=== PATIENT | male | born 1940 | race Caucasian/White ===

== ENCOUNTER 2017-09-27 09:48 | Inpatient (IN) | payer MEDICARE, BC ==
[~2017-09-27] VITALS: Ht 172.7 cm; Wt 72.6 kg
[2017-09-27] MEDS ORDERED: SERT50TA PO (10:09)
[2017-09-27] MEDS ORDERED: SIMV20TA6 PO (10:09)
[2017-09-27] MEDS ORDERED: DIVA-78 PO (10:09)
[2017-09-27] MEDS ORDERED: CYAN10009 PO (10:09)
[2017-09-27] MEDS ORDERED: CHOL100045 PO (10:09)
[2017-09-27] MEDS ORDERED: VALS1TAB4 PO (10:09)
[2017-09-27] MEDS ORDERED: MEMA10TA PO (10:09)
[2017-09-27] MEDS ORDERED: ALLO100T PO (10:09)
[2017-09-27] MEDS ORDERED: RISP0.5T20 PO (10:09)
[2017-09-27] MEDS ORDERED: PROM6.256 PO (10:09)
[2017-09-27] MEDS ORDERED: CALC500T51 PO (10:09)
[2017-09-27] MEDS ORDERED: AZIT250T PO (10:09)
[2017-09-27] MEDS ORDERED: DONE10TA44 PO (10:09)
[2017-09-27] MEDS ORDERED: OLANZAPINE 5 MG TABLET PO ONE (10:45)
--- NOTE | 2017-09-27 10:46 | NUR ---
LABS DRAWN SENT EARLIER, EKG DONE, MEDS ADMIN. PT TO CT SCAN .
[2017-09-27] MEDS ORDERED: OLANZAPINE 5 MG TABLET ONE (10:48)
[2017-09-27 10:50] LABS: BASOPHILS % (AUTO) 0.5 % (0.0-2.0); EOSINOPHILS % (AUTO) 0.6 % (0.0-7.0); HEMATOCRIT 34.9 % (36.7-47.1); HEMOGLOBIN 11.8 g/dL (12.5-16.3); LYMPHOCYTES # (AUTO) 0.6 K/uL (20.0-40.0); LYMPHOCYTES % (AUTO) 13.4 % (20.5-51.5); MEAN CORPUSCULAR HEMOGLOBIN 33.1 uug (23.8-33.4); MEAN CORPUSCULAR HGB CONC 34 g/dL (32.5-36.3); MEAN CORPUSCULAR VOLUME 97.6 fL (73.0-96.2); MONOCYTES # (AUTO) 0.3 K/uL (2.0-10.0); MONOCYTES % (AUTO) 5.5 % (0.0-11.0); NEUTROPHILS # (AUTO) 3.7 K/uL (1.8-8.9); PLATELET COUNT (AUTO) 186 K/uL (152-348); RED BLOOD CELL COUNT(AUTO) 3.57 MIL/uL (4.06-5.63); WHITE BLOOD COUNT (AUTO) 4.6 K/uL (3.6-10.2)
[2017-09-27 11:03] LABS: CARBON DIOXIDE 27 mmol/L (21-32); CHLORIDE 101 mmol/L (98-107); GLUCOSE 114 mg/dL (74-106); POTASSIUM 3.3 mmol/L (3.5-5.1); UREA NITROGEN, BLOOD 43 mg/dL (7-18)
[2017-09-27 11:09] LABS: ALANINE AMINOTRANSFERASE 24 U/L (16-63); ALKALINE PHOSPHATASE 99 U/L (50-136); ASPARTATE AMINOTRANSFERASE 17 U/L (15-37); BILIRUBIN,DIRECT 0.1 mg/dL (0.0-0.2); BILIRUBIN,TOTAL 0.4 mg/dL (0.2-1.0); TOTAL PROTEIN, SERUM 7.7 g/dL (6.4-8.2)
[2017-09-27 11:10] LABS: ACETAMINOPHEN < 2.0 ug/mL (10-30)
[2017-09-27 13:32] LABS: *BILIRUBIN,URIN NEGATIVE (NEGATIVE); *BLOOD, URINE NEGATIVE (NEGATIVE); *CLARITY,URINE CLEAR (CLEAR); *COLOR,URINE YELLOW (YELLOW); *KETONES,URINE NEGATIVE (NEGATIVE); *PROTEIN,URINE NEGATIVE (NEGATIVE); *UROBILINOGEN,URINE 0.2 E.U./dl (NORMAL); LEUKOCYTE ESTERASE ,URINE NEGATIVE (NEGATIVE); NITRITE, URINE NEGATIVE (NEGATIVE); UGLUCOSE NEGATIVE (NEGATIVE)
[2017-09-27 13:50] LABS: BACTERIA,URINE NONE SEEN /HPF (NONE SEEN); RBC,URINE 0-3 /HPF (0-3); SQUAMOUS EPITHELIAL CELL,UR FEW /HPF (NONE SEEN); WBC,URINE 0-3 /HPF (0-3)
[2017-09-27] MEDS ORDERED: IV NORMAL SALINE 250 ML BAG IV ONE (14:45)
[2017-09-27] MEDS ORDERED: OLANZAPINE 5 MG TABLET PO PRN (15:00)
[2017-09-27] MEDS ORDERED: LORAZEPAM 0.5 MG TABLET PO PRN (15:00)
[2017-09-27] MEDS ORDERED: PROMETHAZINE HCL PO SCH (15:00)
[2017-09-27] MEDS ORDERED: ONDANSETRON 4 MG/2 ML VIAL IV PRN (15:00)
[2017-09-27] MEDS ORDERED: ACETAMINOPHEN 325 MG TABLET PO PRN (15:00)
[2017-09-27] MEDS ORDERED: HYDROCODONE/APAP 5-325MG TABLET PO PRN (15:00)
[2017-09-27] MEDS ORDERED: Z GUARD REMEDY PASTE 57 GM TUBE TOP PRN (15:00)
[2017-09-27] MEDS ORDERED: MAGNESIUM HYDROXIDE 30 ML LIQUID UDC PO PRN (15:00)
--- NOTE | 2017-09-27 15:16 | NUR ---
mse completed, belongingds list done, awairting for yaneth rn 2nd floor to call back for report.
--- NOTE | 2017-09-27 15:55 | NUR ---
patient transferred onto medical-surgical floor at this time in stable condition, vital signs stable. no s/s of distress. patient appears to be confused, restless, hallucinating. appears to be reaching for something with eyes closed. belongings checklist completed, vital signs taken, changed, situated comfortably in bed. wrapped IV-access for safety. daughter at bedside to provide information about patient. MD orders placed, will follow. reorientation will be provided. will continue to monitor. fall precaution. pt eval initiated.
[2017-09-27 16:27] VITALS: BP 122/56
[2017-09-27] MEDS ORDERED: risperiDONE 0.5 MG TABLET PO SCH (17:00)
[2017-09-27] MEDS ORDERED: ACET-73 PO (17:21)
[2017-09-27] MEDS ORDERED: ACETAMINOPHEN ES 500 MG TABLET PO SCH (17:30)
[2017-09-27] MEDS: MEMANTINE HCL 10 MG TABLET PO SCH (17:38)
[2017-09-27] MEDS: DONEPEZIL 10 MG TABLET PO SCH ×2 (17:38→20:15)
[2017-09-27] MEDS ORDERED: GUAIFENESIN/DEXTROMETHORPHAN 5 ML UDC PO PRN (18:30)
[2017-09-27 20:00] VITALS: BP 119/95
[2017-09-27] MEDS: ACETAMINOPHEN ES 500 MG TABLET PO SCH (20:15)
[2017-09-27] MEDS: DIVALPROEX 250 MG TABLET.DR PO SCH (20:15)
[2017-09-27] MEDS ORDERED: DIVALPROEX 500 MG TABLET.DR PO SCH (21:00)
--- NOTE | 2017-09-27 21:21 | NUR ---
Patient appears to be resting in bed eyes closed. Respirations even and unlabored on room air. No complaints of pain at this time. Medications administered. Will monitor for adverse reactions. No s/s of aspiration noted. Will continues to monitor.
--- NOTE | 2017-09-28 01:48 | NUR ---
Pt appears to be sleeping. Fall precautions observed at all times. Frequent visual checks. Bed alarms engaged. Will continue to monitor.
[2017-09-28 04:31] VITALS: BP 111/77
[2017-09-28] MEDS: PANTOPRAZOLE SODIUM 40 MG TABLET.DR PO SCH (06:16)
[2017-09-28 07:17] LABS: EOSINOPHILS # (AUTO) 0.2 K/uL (0.0-0.7); EOSINOPHILS % (AUTO) 4.5 % (0.0-7.0); HEMATOCRIT 33.1 % (36.7-47.1); HEMOGLOBIN 11.4 g/dL (12.5-16.3); LYMPHOCYTES # (AUTO) 0.8 K/uL (20.0-40.0); MEAN CORPUSCULAR HEMOGLOBIN 33.7 uug (23.8-33.4); MEAN CORPUSCULAR HGB CONC 35 g/dL (32.5-36.3); MEAN CORPUSCULAR VOLUME 97.4 fL (73.0-96.2); MONOCYTES # (AUTO) 0.3 K/uL (2.0-10.0); MONOCYTES % (AUTO) 8.6 % (0.0-11.0); NEUTROPHILS # (AUTO) 2.2 K/uL (1.8-8.9); NEUTROPHILS % (AUTO) 62.9 % (38.5-71.5); PLATELET COUNT (AUTO) 176 K/uL (152-348); RED BLOOD CELL COUNT(AUTO) 3.39 MIL/uL (4.06-5.63); WHITE BLOOD COUNT (AUTO) 3.6 K/uL (3.6-10.2)
[2017-09-28 07:38] LABS: CARBON DIOXIDE 29 mmol/L (21-32); CHLORIDE 107 mmol/L (98-107); CREATININE 1.5 mg/dL (0.6-1.3); GLUCOSE 80 mg/dL (74-106); MAGNESIUM 1.9 mg/dL (1.8-2.4); PHOSPHOROUS 4.3 mg/dL (2.5-4.9); POTASSIUM 3.4 mmol/L (3.5-5.1); UREA NITROGEN, BLOOD 35 mg/dL (7-18)
[2017-09-28 07:50] LABS: THYROID STIMULATING HORMONE 1.279 mIU/mL (0.358-3.740)
[2017-09-28] MEDS: CYANOCOBALAMIN 1,000 MCG TABLET PO SCH (08:55)
[2017-09-28] MEDS: AZITHROMYCIN 250 MG TABLET PO SCH (08:55)
[2017-09-28] MEDS: CHOLECALCIFEROL 1,000 UNIT TABLET PO SCH (08:55)
[2017-09-28] MEDS: CALCIUM CARBONATE 500 MG TABLET PO SCH (08:55)
[2017-09-28] MEDS: SERTRALINE HCL 50 MG TABLET PO SCH (08:55)
[2017-09-28] MEDS: risperiDONE 0.25 MG TABLET PO SCH ×2 (08:55→20:05)
[2017-09-28] MEDS: ALLOPURINOL 100 MG TABLET PO SCH (08:55)
[2017-09-28] MEDS: DIVALPROEX 250 MG TABLET.DR PO SCH ×2 (08:55→20:05)
[2017-09-28] MEDS: ACETAMINOPHEN ES 500 MG TABLET PO SCH ×2 (08:56→20:05)
[2017-09-28] MEDS: MEMANTINE HCL 10 MG TABLET PO SCH ×2 (08:56→16:53)
[2017-09-28] MEDS: HYDROCHLOROTHIAZIDE 12.5 MG CAPSULE PO SCH (09:00)
[2017-09-28] MEDS ORDERED: VALSARTAN 160 MG TABLET PO SCH (09:00)
[2017-09-28] MEDS: LOSARTAN POTASSIUM 50 MG TABLET PO SCH ×2 (09:42→20:05)
--- NOTE | 2017-09-28 09:55 | NUR ---
Nurse Notes: Received patient asleep, on bed on a semi leigh's position, easily aroused. Denies any pain. No display of pain or discomforts. safety precautions observed. IV site patent and intact. Will continue to closely monitor patient.
--- NOTE | 2017-09-28 11:30 | NUR ---
Nurse Notes: called mental health unit spoke to Shelley asked if Dr. Greene is in the unit. per shelley BARCENAS is there. Spoke to Dr. Greene and informed of the consult, MD acknowledged.
[2017-09-28 11:45] VITALS: BP 104/59
[2017-09-28] MEDS ORDERED: POTASSIUM CHLORIDE 10 MEQ TAB.PRT.SR PO ONE ×2 (12:30→13:00)
--- NOTE | 2017-09-28 12:31 | NUR ---
Urine specimen collected- sent to lab as ordered
[2017-09-28] MEDS: POTASSIUM CHLORIDE 20 MEQ POWDER PACKET PO ONE ×2 (13:29→13:49)
--- NOTE | 2017-09-28 13:46 | NUR ---
Patient's K level is 3.4. potassium 10 mEq was ordered orally but patient refused to take the medicine. attempted several times, explained risks and benefits to patient and daughter Neisha at the bedside still patient refused, becomes agitated and combative towards the staff and daughter. Pt's daughter Neisha said "That's okay if he does not want to take it, just let the doctor know". Will inform Dr. Roberts. Addendum: 09/28/17 at 1543 by ALENA ACKERMAN RN Spoke with Moy Keyes NP and informed of the situation. No new orders.
[2017-09-28 14:28] LABS: *CREATININE,URINE 71.6 mg/dL (30-125); *URINE TOTAL PROTEIN RANDOM 10.2 mg/dL (<150/24HR)
[2017-09-28 14:42] LABS: *BILIRUBIN,URIN NEGATIVE (NEGATIVE); *BLOOD, URINE NEGATIVE (NEGATIVE); *CLARITY,URINE CLEAR (CLEAR); *COLOR,URINE YELLOW (YELLOW); *KETONES,URINE NEGATIVE (NEGATIVE); *PROTEIN,URINE NEGATIVE (NEGATIVE); *UROBILINOGEN,URINE 0.2 E.U./dl (NORMAL); LEUKOCYTE ESTERASE ,URINE NEGATIVE (NEGATIVE); NITRITE, URINE NEGATIVE (NEGATIVE); PH,URINE 6.5 (5.0-8.0); UGLUCOSE NEGATIVE (NEGATIVE)
[2017-09-28 15:26] LABS: WBC,URINE 0-3 /HPF (0-3)
[2017-09-28 15:42] VITALS: BP 132/74
--- NOTE | 2017-09-28 17:34 | NUR ---
Nurse Notes: patient remained to be in stable throughout the shift with no acute changes. No changes in LOC or mentation. No SOB or distress. no display of pain or discomforts. Frequent visual checks done. hourly rounding done, bed alarm on for safety. Will endorse accordingly to incoming shift for continuity of care. Will continue to monitor.
[2017-09-28 19:33] VITALS: BP 150/76
--- NOTE | 2017-09-28 20:00 | NUR ---
Pt caregiver present and assisted with medication administration. Pt compliant with care. Bed in low position. Call light in reach. Frequent visual checks. No complaints of pain at this time. Will continue to monitor.
[2017-09-28] MEDS: SIMVASTATIN 20 MG TABLET PO SCH (20:05)
[2017-09-28] MEDS: DONEPEZIL 10 MG TABLET PO SCH (20:05)
--- NOTE | 2017-09-28 23:00 | NUR ---
Pt attempted to get out of bed. Reoriented patient. Linens changed and patient made comfortable. No signs or symptoms of distress noted. Will continue to monitor.
--- NOTE | 2017-09-29 01:30 | NUR ---
Pt attempting to get out of bed once again. Reoriented. Frequent visual checks. Bed in low position. Perineal care provided. Will continue to monitor.
[2017-09-29 03:42] VITALS: BP 113/58
[2017-09-29 05:55] LABS: EOSINOPHILS # (AUTO) 0.2 K/uL (0.0-0.7); EOSINOPHILS % (AUTO) 4.6 % (0.0-7.0); HEMATOCRIT 34.7 % (36.7-47.1); LYMPHOCYTES % (AUTO) 22.6 % (20.5-51.5); MEAN CORPUSCULAR HEMOGLOBIN 33.5 uug (23.8-33.4); MEAN CORPUSCULAR HGB CONC 35 g/dL (32.5-36.3); MONOCYTES # (AUTO) 0.4 K/uL (2.0-10.0); MONOCYTES % (AUTO) 9.4 % (0.0-11.0); NEUTROPHILS # (AUTO) 2.7 K/uL (1.8-8.9); NEUTROPHILS % (AUTO) 62.4 % (38.5-71.5); PLATELET COUNT (AUTO) 196 K/uL (152-348); RED BLOOD CELL COUNT(AUTO) 3.58 MIL/uL (4.06-5.63); WHITE BLOOD COUNT (AUTO) 4.4 K/uL (3.6-10.2)
[2017-09-29] MEDS: PANTOPRAZOLE SODIUM 40 MG TABLET.DR PO SCH (06:00)
[2017-09-29 06:21] LABS: ALANINE AMINOTRANSFERASE 16 U/L (16-63); ALKALINE PHOSPHATASE 89 U/L (50-136); ASPARTATE AMINOTRANSFERASE 18 U/L (15-37); BILIRUBIN,TOTAL 0.7 mg/dL (0.2-1.0); CARBON DIOXIDE 30 mmol/L (21-32); CHLORIDE 103 mmol/L (98-107); CREATININE 1.4 mg/dL (0.6-1.3); GLUCOSE 89 mg/dL (74-106); MAGNESIUM 1.7 mg/dL (1.8-2.4); PHOSPHOROUS 3.5 mg/dL (2.5-4.9); POTASSIUM 3.2 mmol/L (3.5-5.1); TOTAL PROTEIN, SERUM 7.3 g/dL (6.4-8.2); UREA NITROGEN, BLOOD 22 mg/dL (7-18)
--- NOTE | 2017-09-29 06:47 | NUR ---
Patient required frequent visual checks throughout night. Will endorse need to oncoming LN
--- NOTE | 2017-09-29 07:30 | NUR ---
Pt.sleeping,no s/s of acute distress or pain noted.
[2017-09-29] MEDS: CALCIUM CARBONATE 500 MG TABLET PO SCH (08:14)
[2017-09-29] MEDS: DIVALPROEX 250 MG TABLET.DR PO SCH ×3 (08:14→16:59)
[2017-09-29] MEDS: CYANOCOBALAMIN 1,000 MCG TABLET PO SCH (08:14)
[2017-09-29] MEDS: AZITHROMYCIN 250 MG TABLET PO SCH (08:14)
[2017-09-29] MEDS: MEMANTINE HCL 10 MG TABLET PO SCH ×2 (08:14→16:59)
[2017-09-29] MEDS: ALLOPURINOL 100 MG TABLET PO SCH (08:14)
[2017-09-29] MEDS: LOSARTAN POTASSIUM 50 MG TABLET PO SCH ×2 (08:14→20:44)
[2017-09-29] MEDS: CHOLECALCIFEROL 1,000 UNIT TABLET PO SCH (08:14)
[2017-09-29] MEDS: SERTRALINE HCL 50 MG TABLET PO SCH (08:14)
[2017-09-29] MEDS: ACETAMINOPHEN ES 500 MG TABLET PO SCH ×2 (08:15→20:44)
[2017-09-29] MEDS: risperiDONE 0.25 MG TABLET PO SCH ×3 (08:15→17:00)
[2017-09-29] MEDS: HYDROCHLOROTHIAZIDE 12.5 MG CAPSULE PO SCH (08:15)
[2017-09-29] MEDS ORDERED: POTASSIUM CHLORIDE 20 MEQ TAB.PRT.SR PO ONE (10:45)
--- NOTE | 2017-09-29 10:50 | NUR ---
Pt.was seen by and [facility],family at bedside updated with pt.condition.
[2017-09-29 11:30] VITALS: BP 154/52
[2017-09-29] MEDS ORDERED: MAGNESIUM OXIDE 400 MG TABLET PO ONE (13:30)
--- NOTE | 2017-09-29 14:30 | NUR ---
Pt.sleeping intermittently with episodes of resistlessness.
[2017-09-29 15:34] VITALS: BP 120/70
--- NOTE | 2017-09-29 15:53 | NUR ---
Pt.was seen by PT.
--- NOTE | 2017-09-29 18:55 | NUR ---
DAUGHTER AT BEDSIDE UPDATED WITH PT.CONDITION AND PLAN OF CARE.
--- NOTE | 2017-09-29 19:45 | NUR ---
RECEIVED PATIENT AWAKE, BUT CONFUSED, SPEAK TO SELF AND HALLUCINATING, DAUGHTER AT BEDSIDES, REORIENT PATIENT, KEPT CLEAN AND DRY. FREQUENT VISUAL CHECKS FOR SAFETY, CALL LIGHT WITHIN REACH.
[2017-09-29 20:28] VITALS: BP 132/67
[2017-09-29] MEDS: SIMVASTATIN 20 MG TABLET PO SCH (20:44)
[2017-09-29] MEDS: DONEPEZIL 10 MG TABLET PO SCH (20:44)
[2017-09-30] VITALS (9 sets, daily range): BP systolic 66–158; BP diastolic 42–76
[2017-09-30 06:09] LABS: BASOPHILS % (AUTO) 0.7 % (0.0-2.0); EOSINOPHILS # (AUTO) 0.2 K/uL (0.0-0.7); EOSINOPHILS % (AUTO) 5.6 % (0.0-7.0); HEMOGLOBIN 12.9 g/dL (12.5-16.3); LYMPHOCYTES % (AUTO) 23.6 % (20.5-51.5); MEAN CORPUSCULAR HEMOGLOBIN 32.6 uug (23.8-33.4); MEAN CORPUSCULAR HGB CONC 34 g/dL (32.5-36.3); MEAN CORPUSCULAR VOLUME 96.2 fL (73.0-96.2); MONOCYTES # (AUTO) 0.4 K/uL (2.0-10.0); MONOCYTES % (AUTO) 10.2 % (0.0-11.0); NEUTROPHILS # (AUTO) 2.6 K/uL (1.8-8.9); NEUTROPHILS % (AUTO) 59.9 % (38.5-71.5); PLATELET COUNT (AUTO) 243 K/uL (152-348); RED BLOOD CELL COUNT(AUTO) 3.95 MIL/uL (4.06-5.63); WHITE BLOOD COUNT (AUTO) 4.4 K/uL (3.6-10.2)
[2017-09-30] MEDS: PANTOPRAZOLE SODIUM 40 MG TABLET.DR PO SCH (06:09)
[2017-09-30 06:17] LABS: CARBON DIOXIDE 29 mmol/L (21-32); CHLORIDE 105 mmol/L (98-107); CREATININE 1.5 mg/dL (0.6-1.3); GLUCOSE 91 mg/dL (74-106); MAGNESIUM 1.8 mg/dL (1.8-2.4); POTASSIUM 3.9 mmol/L (3.5-5.1); UREA NITROGEN, BLOOD 24 mg/dL (7-18)
--- NOTE | 2017-09-30 07:26 | NUR ---
PATIENT SLEPT INTERMITTENTLY, NO SOB NO CHEST PAIN NOTED, NO S/S OF PAIN AT THIS TIME, PATIENT HAS EPISODES OF RESIST CARE, COMBATIVE, TRIES TO HIT STAFF, CONT TO REORIENT PATIENT, KEPT CLEAN AND DRY. CONT TO MONITOR.
--- NOTE | 2017-09-30 07:45 | NUR ---
PATIENT RESTING COMFORTABLY IN BED AT THIS TIME. NO SIGNS OF AGITATION. PATIENT APPEARS CONFUSED, DEMENTED. STABLE AT THIS TIME. NO S/S OF DISTRESS. PSYCHOTROPIC MEDICATIONS ON MEDICATION LIST. VITALS WILL BE MONITORED. TURNING/REPOSITIONING Q2H. SKIN CARE WILL BE PROVIDED. BED ALARM ON, CALL LIGHT WITHIN REACH. BED IN LOCKED/LOW POSITION, SIDE RAILS UP X3.
[2017-09-30] MEDS: MEMANTINE HCL 10 MG TABLET PO SCH ×3 (08:35→17:00)
[2017-09-30] MEDS: DIVALPROEX 250 MG TABLET.DR PO SCH ×4 (08:35→17:00)
[2017-09-30] MEDS: ACETAMINOPHEN ES 500 MG TABLET PO SCH ×3 (08:35→21:33)
[2017-09-30] MEDS: SERTRALINE HCL 50 MG TABLET PO SCH ×2 (08:35→08:52)
[2017-09-30] MEDS: ALLOPURINOL 100 MG TABLET PO SCH ×2 (08:35→08:52)
[2017-09-30] MEDS: risperiDONE 0.25 MG TABLET PO SCH ×3 (08:35→13:00)
[2017-09-30] MEDS: CHOLECALCIFEROL 1,000 UNIT TABLET PO SCH ×2 (08:36→08:52)
[2017-09-30] MEDS: LOSARTAN POTASSIUM 50 MG TABLET PO SCH ×3 (08:36→21:34)
[2017-09-30] MEDS: CALCIUM CARBONATE 500 MG TABLET PO SCH ×2 (08:36→08:51)
[2017-09-30] MEDS: HYDROCHLOROTHIAZIDE 12.5 MG CAPSULE PO SCH ×2 (08:36→08:51)
[2017-09-30] MEDS: CYANOCOBALAMIN 1,000 MCG TABLET PO SCH ×2 (08:36→08:52)
--- NOTE | 2017-09-30 08:52 | NUR ---
non-administration medications - all scheduled 0900 morning medications. medications crushed and mixed with apple sauce but patient does NOT swallow. high risk for aspiration. swallow eval will be placed if not already.
--- NOTE | 2017-09-30 12:54 | NUR ---
RAPID RESPONSE CALLED AT THIS TIME DUE TO HYPOTENSION WITH BLOOD PRESSURE 77/43. TOOLING SUPERVISOR, OUTSIDE CUTTER, CHARGE NURSE, RESPIRATORY THERAPY, AND REGISTERED NURSES ARRIVED. ORDERED TO BOLUS NS 1L. BOLUS NS 1L ADMINISTERED. BLOOD PRESSURE STABILIZED AT 1310. 122.
[2017-09-30] MEDS ORDERED: IV NS 1000 ML 1,000 ML IV ONE (14:45)
--- NOTE | 2017-09-30 16:00 | NUR ---
speech therapist consulted with patient at this time but unable to assess due to patient's mental status. extremely lethargic.
--- NOTE | 2017-09-30 17:10 | NUR ---
NON-ADMINISTRATION MEDICATION: DEPAKOTE 250 MG & NAMENDA 10 MG. PATIENT EXTREMELY LETHARGIC, HIGH RISK FOR ASPIRATION.
--- NOTE | 2017-09-30 18:18 | NUR ---
PATIENT CONTINUES TO BE LETHARGIC. SLIGHTLY IMPROVED. PATIENT ABLE TO SPEAK BUT CANNOT UNDERSTAND WHAT HE IS VERBALIZING. VERY GARBLED AND SLURRED SPEECH. UNABLE TO TOLERATE DIET. DOES NOT CHEW, APPEARS TO HAVE A DIFFICULT TIME SWALLOWING. HIGH RISK FOR ASPIRATIONS. MEDICATIONS NOT ADMINISTERED THROUGHOUT THE DAY DUE TO HIGH RISK FOR ASPIRATION. PENDING D/C TO A RETIREMENT FACILITY THAT ACCEPTS PATIENT. BLOOD PRESSURE STABILIZED. STABLE CONDITION, NO S/S OF DISTRESS. O2 2L NASAL CANNULA ON AT THIS TIME.
--- NOTE | 2017-09-30 19:00 | NUR ---
RECEIVED PATIENT ASLEEP, BUT PATIENT MOVES HAND AND FACE WHEN TOUCH, ON OXYGEN 2 LPM NC, NO SOB NO S/S OF DISTRESS, CONT TO MONITOR.
[2017-09-30] MEDS ORDERED: risperiDONE 1 MG TABLET PO SCH (21:00)
[2017-09-30] MEDS: DONEPEZIL 10 MG TABLET PO SCH (21:00)
[2017-09-30] MEDS ORDERED: risperiDONE 0.25 MG TABLET PO SCH (21:00)
[2017-09-30] MEDS: SIMVASTATIN 20 MG TABLET PO SCH (21:33)
--- NOTE | 2017-09-30 21:36 | NUR ---
PATIENT MEDICATION ARICEPT AND RESPERDAL HELD, PATIENT TOO SEDATED AT THIS TIME. CONT TO MONITOR. V/S 150/67, HR 64, OXYGEN SAT 94% AT 2LPM NC CONT TO MONITOR.
[2017-10-01 04:00] VITALS: BP 126/69
[2017-10-01] MEDS: PANTOPRAZOLE SODIUM 40 MG TABLET.DR PO SCH (06:28)
--- NOTE | 2017-10-01 07:17 | NUR ---
PATIENT SLEPT MOST OF THE NIGHT, BP STABLE, AT THIS TIME. PATIENT STILL SLEEPY BUT RESPONSE TO PAIN, TACTILE STIMULATION, TURN AND REPOSITION, KEPT CLEAN AND DRY, HELP PSYCHOTROPICS MEDS DUE TO LETHARGY, MD AWARE, CONT TO MONITOR.
--- NOTE | 2017-10-01 08:00 | NUR ---
RESTING IN BED NON COOPERATE /ANGRY EASILY WHEN TOUCH REFUSED TO EAT BREAKFAST AND MEDICATION THIS AM CLOSED OBSERVATION ON ASPIRATION AND FALL PRECAUTION BED ALARM ON AND CALL LIGHT IN REACH
[2017-10-01] MEDS: SERTRALINE HCL 50 MG TABLET PO SCH ×2 (09:00→12:00)
[2017-10-01] MEDS: HYDROCHLOROTHIAZIDE 12.5 MG CAPSULE PO SCH ×2 (09:00→09:23)
[2017-10-01] MEDS: ACETAMINOPHEN ES 500 MG TABLET PO SCH ×2 (09:00→09:23)
[2017-10-01] MEDS: CYANOCOBALAMIN 1,000 MCG TABLET PO SCH ×2 (09:00→12:16)
[2017-10-01] MEDS: DIVALPROEX 250 MG TABLET.DR PO SCH ×3 (09:00→16:07)
[2017-10-01] MEDS: LOSARTAN POTASSIUM 50 MG TABLET PO SCH ×2 (09:00→09:23)
[2017-10-01] MEDS: CHOLECALCIFEROL 1,000 UNIT TABLET PO SCH ×2 (09:00→12:00)
[2017-10-01] MEDS: CALCIUM CARBONATE 500 MG TABLET PO SCH ×2 (09:00→12:00)
[2017-10-01] MEDS: MEMANTINE HCL 10 MG TABLET PO SCH ×3 (09:00→16:06)
[2017-10-01] MEDS: ALLOPURINOL 100 MG TABLET PO SCH (09:24)
--- NOTE | 2017-10-01 10:00 | NUR ---
KITCHEN STEWARD AT BEDSIDE STILL NONCOOPERATE NO EAT OR DRINK
[2017-10-01 11:31] VITALS: BP_SYST 107; BP_SYST 111; BP_DIAS 55; BP_DIAS 59
[2017-10-01 15:55] VITALS: BP 103/64
--- NOTE | 2017-10-01 16:00 | NUR ---
D/C INSTRUCTION REGARDING F/U WITH OWN PMD AND CONTINUE HOME MEDICINE AT SNF EXPLAINED TO DAUGHTER AND D/C SHEET SIGNS HL DISCONTINUE PRIOR D/C TO [facility]
--- NOTE | 2017-10-01 16:15 | NUR ---
REPORT GIVEN TO NURSE MYLINE VIA TEL CONDITION STABLE MORE CALM AND COOPERATE AT THIS TIME
--- NOTE | 2017-10-01 17:00 | NUR ---
D/C TO SNF VIA AMBULANCE WITH HIS BELONGING ACCOMPANIES WITH [facility] AND DAUGHTER CONDITION STABLE NO SOB OR PAIN
== END 2017-10-01 17:00 | DRG 682 ==
LOC: ER 09:48 → MED 15:13
PROVIDERS: ADMIT Nurse Practitioner Acute Care; ATTEND Internal Medicine
DX: N17.9 Acute kidney failure, unspecified (principal); E43 Unspecified severe protein-calorie malnutrition; F02.81 Dementia in other diseases classified elsewhere, unspecified severity, with behavioral disturbance; E87.1 Hypo-osmolality and hyponatremia; G30.9 Alzheimer's disease, unspecified; E86.9 Volume depletion, unspecified; D63.8 Anemia in other chronic diseases classified elsewhere; Z79.899 Other long term (current) drug therapy; E78.5 Hyperlipidemia, unspecified; E87.6 Hypokalemia; Z88.0 Allergy status to penicillin; F39 Unspecified mood [affective] disorder; E88.09 Other disorders of plasma-protein metabolism, not elsewhere classified; I13.10 Hypertensive heart and chronic kidney disease without heart failure, with stage 1 through stage 4 chronic kidney disease, or unspecified chronic kidney disease; N18.9 Chronic kidney disease, unspecified; M20.10 Hallux valgus (acquired), unspecified foot; M19.072 Primary osteoarthritis, left ankle and foot; I67.2 Cerebral atherosclerosis; M11.20 Other chondrocalcinosis, unspecified site; R29.6 Repeated falls; M16.0 Bilateral primary osteoarthritis of hip; R05 Cough
CPT/HCPCS: 36415; 70030-TC; 70450; 71045; 73521; 73630; 80164; 83735; 84100; 84156; 84300; 84443; 85025; 85730; 87086; 92610; 93005; 97530; A4663; A9150; C1758; G0480-TC; J3490; J7030; J8499; Q0144